=== PATIENT | female | born 2000 | race African-American/Black ===

== ENCOUNTER 2021-12-09 12:09 | Emergency (ER) | payer MEDICAID ==
[~2021-12-09] VITALS: Ht 170.2 cm; Wt 70.0 kg
[2021-12-09 12:26] VITALS: BP 126/61
[2021-12-09] MEDS ORDERED: LIDOCAINE 1% 10 ML VIAL PERC ONE (14:15)
[2021-12-09] MEDS ORDERED: AMOX1TAB16 PO (15:37)
== END 2021-12-09 15:55 | disposition home or self-care (01) ==
LOC: EMS 12:09
DX: S01.511A Laceration without foreign body of lip, initial encounter (principal); Y04.2XXA Assault by strike against or bumped into by another person, initial encounter; Y93.89 Activity, other specified; Y92.89 Other specified places as the place of occurrence of the external cause; Y99.8 Other external cause status
CPT/HCPCS: 12011; 99283; J3490